=== PATIENT | female | born 1995 | race Hispanic/Latino ===

== ENCOUNTER 2019-08-22 00:21 | Emergency (ER) | payer MEDICAID, OTHER ==
[2019-08-22] MEDS ORDERED: HYDROCODONE/ACETAMINOPHEN 10/325 MG TAB ONE (01:06)
[2019-08-22 01:35] LABS: BILIRUBIN,URINE Negative (NEGATIVE); COLOR,URINE Yellow (YELLOW); GLUCOSE, URINE (UA) Negative (NEGATIVE); KETONES,URINE Negative (NEGATIVE); LEUKOCYTE ESTERASE ,URINE Negative (NEGATIVE); NITRATE,URINE Negative (NEGATIVE); OCCULT BLOOD,URINE Negative (NEGATIVE); PH,URINE 5.5 (5.0-8.0); PROTEIN,URINE Negative (NEGATIVE)
[2019-08-22 01:39] LABS: APPEARANCE,URINE CLEAR (CLEAR)
[2019-08-22 01:40] LABS: HCG,QUAL RESULT NEGATIVE (NEGATIVE)
[2019-08-22] MEDS ORDERED: DOXYCYCLINE HYCLATE 100 MG TABLET PO ONE (02:14)
== END 2019-08-22 02:19 | disposition home or self-care (01) ==
LOC: EDH 00:21
DX: L03.818 Cellulitis of other sites (principal)
CPT/HCPCS: 81003; 81025